=== PATIENT | female | born 1955 | race Caucasian/White ===

== ENCOUNTER 2022-11-12 15:20 | Outpatient (REF) | payer BC, SELFPAY ==
[2022-11-12 16:51] LABS: Estimated Average Glucose 214 mg/dL; Glucose Fasting 318 mg/dL (60-99); Hemoglobin A1c % 9.1 %
== END 2022-11-12 15:21 | disposition home or self-care (01) ==
LOC: HO.LAB 15:20
PROVIDERS: PCP Family Medicine; Visit Provider Family Medicine
DX: E11.9 Type 2 diabetes mellitus without complications (principal)
CPT/HCPCS: 36415; 82947; 83036

== ENCOUNTER 2024-03-03 14:16 | Outpatient (REF) | payer BC, SELFPAY ==
[2024-03-03 14:43] LABS: MANUAL DIFF FLAG NO
[2024-03-03 15:36] LABS: Basophils Absolute Auto 0.1 X10*3/uL (0.0-0.2); Basophils Percent Auto 0.7 % (0-2); Eosinophils Absolute Auto 0.3 X10*3/uL (0.0-0.4); Eosinophils Percent Auto 4.2 % (0-4); Hematocrit 42.9 % (37.0-47.0); Hemoglobin 15.3 g/dl (12.0-16.0); Imm Gran Abs Auto 0.06 X10*3/uL (0.00-0.03); Imm Gran Pct Auto 0.8 % (0.0-0.4); Lymphocytes Absolute Auto 2.1 X10*3/uL (1.2-4.9); Lymphocytes Percent Auto 27.1 % (20-40); Mean Corpuscular HGB Conc 35.7 g/dl (31.0-35.0); Mean Corpuscular Hemoglobin 31.5 pg (27.0-33.0); Mean Corpuscular Volume 88.3 fL (80.0-98.0); Mean Platelet Volume 10.3 fL (9.4-12.3); Monocytes Absolute Auto 0.7 X10*3/uL (0.1-1.2); Monocytes Percent Auto 9.2 % (2-11); Neutrophils Absolute Auto 4.5 x10*3/uL (2.0-8.3); Platelet Count 185 X10*3/uL (160-400); Red Blood Count 4.86 X10*6/uL (4.20-5.50); White Blood Count 7.7 X10*3/uL (4.8-10.8)
[2024-03-03 15:47] LABS: Estimated Average Glucose 232 mg/dL; Hemoglobin A1c % 9.7 % (<6.0)
[2024-03-03 16:46] LABS: Alanine Aminotransferase 27 U/L (0-31); Anion Gap 14 (12-20); Aspartate Amino Transferase 15 U/L (5-31); Carbon Dioxide 25 mmol/L (22-29); Chloride 102 mmol/L (96-108); Cholesterol 177 mg/dL (<200); Estimated Glomerular Filt Rate > 60; Glucose Fasting 282 mg/dL (60-99); HDL Cholesterol 60 mg/dL (>40); LDL Cholesterol Calculated 98 mg/dL (<100); Potassium 4.6 mmol/L (3.3-5.1); Sodium 136 mmol/L (135-145); Triglycerides 97 mg/dL (<150)
[2024-03-03 16:47] LABS: Microalbum/Creatinine Ratio Ur 17.7 ug/mg cr (<30)
== END 2024-03-03 14:17 | disposition home or self-care (01) ==
LOC: HO.LAB 14:16
PROVIDERS: PCP Family Medicine; Visit Provider Family Medicine
DX: I10 Essential (primary) hypertension (principal); E11.9 Type 2 diabetes mellitus without complications; E78.00 Pure hypercholesterolemia, unspecified; Z79.899 Other long term (current) drug therapy; R27.0 Ataxia, unspecified
CPT/HCPCS: 36415; 80051; 80061; 82043; 82550; 82565; 82570; 82947; 83036; 84450; 84460; 85025

== ENCOUNTER 2024-11-16 15:05 | Outpatient (REF) | payer BC, SELFPAY ==
--- OUTSIDE RECORDS SUMMARY | 2024-11-16 16:42 | XMS_ITS | Clinical Summary ---
Author Organization [facility] Address [address] [place] [address] Care Team Providers Care Well Tester Name Role Phone Derrek Hendricks MD Primary Care Provider [phone] Allergies Active Allergy Reactions Criticality Noted Date Comments Codeine 12/02/2020 Garlic 12/02/2020 Meperidine Hcl 12/02/2020 Oxycodone Hcl 12/02/2020 Shrimp 12/02/2020 Medications spironolactone (ALDACTONE) 25 mg tablet TAKE 1 TABLET BY MOUTH EVERY DAY 90 tablet 3 06/16/2024 Active verapamil ER (VERELAN) 240 mg 24 hr capsule TAKE 1 CAPSULE BY MOUTH EVERY DAY 90 capsule 3 06/16/2024 Active atenoloL (TENORMIN) 50 mg tablet TAKE 1 TABLET BY MOUTH TWICE A DAY 180 tablet 3 06/16/2024 Active aspirin 81 mg EC tablet Take 81 mg by mouth daily. Active atorvastatin (LIPITOR) 10 mg tablet TAKE 1 TABLET BY MOUTH EVERY DAY 02/28/2024 Active benzonatate (TESSALON) 100 mg capsule Take 1 Capsule by mouth 2 times daily as needed for Cough. 01/06/2024 Active brimonidine (ALPHAGAN P) 0.15 % ophthalmic solution Place 1 Drop into both eyes 2 times daily. Active sertraline (ZOLOFT) 25 mg tablet Take 1 Tablet by mouth daily. Active sertraline (ZOLOFT) 50 mg tablet Take 1 Tablet by mouth daily. Active Active Problems Problem Noted Date Diagnosed Date Chronic cough 01/07/2024 Dyslipidemia 01/07/2024 COVID-19 virus infection 12/02/2020 Essential hypertension 12/02/2020 Hypertrophic cardiomyopathy (CMS/HCC V24, CMS/HC C V28) 12/02/2020 Nonrheumatic mitral valve regurgitation 05/21/20 21 Social History Tobacco Use Types Packs/Day Years Used Date Smoking Tobacco: Never Smokeless Tobacco: Never Alcohol Use Standard Drinks/Week Comments Never 0 (1 standard drink = 0.6 oz pur e alcohol) Comments Unknown Sex and Gender Information Value Date Recorded Sex Assigned at Not on file Legal Sex Female 1:01 AM EST Gender Identity Not on file Sexual Orientation Not on file Obstetrics History Last Filed Vital Signs Vital Sign Reading Time Taken Comments Blood Pressure 114/68 01/06/2024 3:05 PM EDT Sitting R Arm Pulse 68 01/06/2024 3:05 PM EDT Temperature - - Respiratory Rate - - Oxygen Saturation - - Inhaled Oxygen Concentration - - Weight 72.8 kg (160 lb 6.4 oz) 01/06/2024 3:05 PM EDT Height 152.4 cm (5') 01/06/2024 3:05 PM EDT Body Mass Index 31.33 01/06/2024 3:05 PM EDT Plan of Treatment Upcoming Encounters Date Type Department Care Team (Late st Contact Info) Description 01/05/2025 1:30 PM EDT Ancillary Procedure [facility] [address] [place] [address] Health Maintenance Due Date Last Done Comments Breast Cancer Screening 1955 COVID-19 Vaccine (#1) 1961 DTaP,Tdap,and Td Vaccines (1 - Tdap) 1975 Pneumococcal Vaccine: 50+ Ye ars (1 of 2 - PCV) 1975 Zoster Vaccines (1 of 2) 1975 Cholesterol Screening (Lipid Panel) 06/23/2022 Colorectal Cancer Screening: Colonoscopy 06/23/2022 Depression Screening 06/23/2022 Falls Risk Assessment 06/23/2022 Hepatitis C Screening 06/23/2022 Osteoporosis Screening (Bone Density Screening) 06/23/2022 Social Influencers of Health Screening 06/23/2022 Hypertension/CHF/CAD Annual BMP Blood Test 06/24/2022 Influenza Vaccine (Season Ended) 2025 RSV Immunization Adult Patie nts (1 - 1-dose 75+ series) 2031 HIB Vaccines Aged Out No longer eligi ble based on patient's age to complete this topic HPV Vaccines Aged Out No longer eligi ble based on patient's age to complete this topic Hepatitis A Vaccines Aged Out No long er eligible based on patient's age to complete this topic Hepatitis B Vaccines Aged Out No long er eligible based on patient's age to complete this topic IPV Vaccines Aged Out No longer eligi ble based on patient's age to complete this topic MMR Vaccines Aged Out No longer eligi ble based on patient's age to complete this topic Meningococcal ACWY Vaccine Aged Out N o longer eligible based on patient's age to complete this topic Meningococcal B Vaccine Aged Out No l onger eligible based on patient's age to complete this topic RSV Immunization Patients Un tyson 20 months Aged Out No longer eligible b ased on patient's age to complete this topic Varicella Vaccines Aged Out No longer eligible based on patient's age to complete this topic Insurance [facility] Care Teams Well Tester Relationship Specialty Start Date End Date Derrek Hendricks MD [address] [place] [address] [place] [address] PCP - General Internal Medicine 06/11/20
[2024-11-16 17:17] LABS: Estimated Average Glucose 235 mg/dL; Hemoglobin A1c % 9.8 % (<6.0); Total Hemoglobin (HGBA1C) 3605.8607 umol/L
[2024-11-16 17:40] LABS: Alanine Aminotransferase 39 U/L (0-31); Anion Gap 14 (12-20); Aspartate Amino Transferase 33 U/L (5-31); Blood Urea Nitrogen 16 mg/dL (9-16); Carbon Dioxide 24 mmol/L (22-29); Chloride 103 mmol/L (96-108); Cholesterol 157 mg/dL (<200); Estimated Glomerular Filt Rate > 60; Glucose Fasting 262 mg/dL (60-99); HDL Cholesterol 55 mg/dL (>40); LDL Cholesterol Calculated 83 mg/dL (<100); Potassium 4.3 mmol/L (3.3-5.1); Sodium 137 mmol/L (135-145); Triglycerides 96 mg/dL (<150)
== END 2024-11-16 15:06 | disposition home or self-care (01) ==
LOC: HO.LAB 15:05
PROVIDERS: PCP Family Medicine; Visit Provider Family Medicine
DX: I10 Essential (primary) hypertension (principal); E78.00 Pure hypercholesterolemia, unspecified; E11.9 Type 2 diabetes mellitus without complications
CPT/HCPCS: 36415; 80051; 80061; 82550; 82565; 82947; 83036; 84450; 84460; 84520

== ENCOUNTER 2025-06-24 14:59 | Outpatient (AMB) | payer BC, SELFPAY ==
--- OUTSIDE RECORDS SUMMARY | 2025-06-22 23:59 | XMS_ITS | Continuity of Care Document ---
Author Organization [facility] Address [address] [place] [address]- Care Team Providers Care Transfer Car Operator Name Role Phone Eladio ELDER, Derrek Davis Primary Care Physician Delaney henriquez Encounter [facility] [place] [facility] [place] [id number] Date(s): 06/15/25 - 06/22/25 [facility] [address] [place], [place] [address] Attending Physician: Anu Briceno MD Admitting Physician: Anu Briceno MD Referring Physician: Derrek Hendricks MD Encounter Type: Office Visit Allergies, Adverse Reactions, Alerts Substance Criticality Severity Reaction Reaction Severity Status codeine C/O - vomiting Activ e garlic Active Percocet 7.5/325 Act melanie Demerol HCl Active Shrimp Active Functional Status Functional Status Assessment Assessment Assessment Component Result Effecti ve Date Disability status [CUBS] I'm Safe - I rarely have acute or chronic symptoms affecting housing, employment, social interactions, etc. 06/15/25 Because of a physica l, mental, or emotional condition, do you have difficulty doing errands alone such as visiting a physician's office or shopping Unknown 06/15/25 Difficulty communica ting in usual language Unknown 06/15/25 Because of a physica l, mental, or emotional condition, do you have serious difficulty concentrating, remembering, or making decisions Unknown 06/15/25 Difficulty Reading O r Writing Unknown 06/15/25 Do you have serious difficulty walking or climbing stairs Unknown 06/15/25 Are you blind, or do you have serious difficulty seeing, even when wearing glasses Unknown 06/15/25 Are you deaf, or do you have serious difficulty hearing Unknown 06/15/25 Do you have difficul ty dressing or bathing Unknown 06/15/25 Do you need any letitia tional assistance or accommodations during your visit Unknown 06/15/25 Immunizations Given and Recorded Vaccine Date Status Refusal Reason influenza virus vaccine, inactivated 05/07/25 Give n Medications Alcohol Pads See Instructions, # 600 each, Refills 2, Tot. Refills 2, Maintenance, use as directed for Type 1 Diabetes Mellitus, 05/11/25 8:47:00 AM EDT, Supply, 152.5, cm, 05/11/25 8:21:00 EDT, Height, 68.4, kg,05/07/25 0:26:00 EDT, Dry Weight Start Date: 05/11/25 Stop Date: 02/05/26 Status: Ordered Medication Dispense Status: Completed Quantity: 600.0 Unit: each Total Allowed Fills: 3 Fills Dispensed: 0 apixaban 5 mg oral tablet = 5 mg, By Mouth, 2 times a day, Take 2 tablets (10mg) twice a day through 05/16 then 1 tablet (5mg)twice a day starting 05/17, # 64 tablet, 0 Refills, Maintenance, 05/11/25 8:34:00 AM EDT, Tablet, [facility], Partial fill upon patient request if the prescription is for a schedule II opioid drug., 152.5, cm, 05/11/25 8:21:00 EDT, Height, 68.4, kg, 05/07/25 0:26:00 EDT, Dry Weight Start Date: 05/11/25 Status: Ordered Medication Dispense Status: Completed Quantity: 64.0 Unit: tablet Total Allowed Fills: 1 Fills Dispensed: 0 aspirin 81 mg oral tablet 1 tablet = 81 mg, By Mouth, Daily, # 90 tablet, 0 Refills, Maintenance, 10/29/18 3:16:46 PM EDT, Tablet Start Date: 10/29/18 Status: Ordered Medication Dispense Status: Completed Quantity: 90.0 Unit: tablet Total Allowed Fills: 1 Fills Dispensed: 0 atorvastatin 10 mg oral tablet 1 tablet = 10 mg, By Mouth, Daily, # 90 tablet, 0 Refills, Maintenance, 05/06/25 6:56:00 AM EDT, Partial fill upon patient request if the prescription is for a schedule II opioid drug. Start Date: 05/06/25 Status: Ordered Medication Dispense Status: Completed Quantity: 90.0 Unit: tablet Total Allowed Fills: 1 Fills Dispensed: 0 Contour Next EZ Glucometer See Instructions, # 1 each, Maintenance, use as directed for Type 2 Diabetes Mellitus, 05/11/25 8:46:00 AM EDT, Supply, 152.5, cm, 05/11/25 8:21:00 EDT, Height, 68.4, kg, 05/07/25 0:26:00 EDT, Dry Weight Start Date: 05/11/25 Status: Ordered Medication Dispense Status: Completed Quantity: 1.0 Unit: each Total Allowed Fills: 1 Fills Dispensed: 0 Freestyle Lancets See Instructions, # 600 each, Refills 2, Tot. Refills 2, Maintenance, use as directed for Type 2 Diabetes Mellitus, 05/11/25 8:46:00 AM EDT, Supply, 152.5, cm, 05/11/25 8:21:00 EDT, Height, 68.4, kg,05/07/25 0:26:00 EDT, Dry Weight Start Date: 05/11/25 Stop Date: 02/05/26 Status: Ordered Medication Dispense Status: Completed Quantity: 600.0 Unit: each Total Allowed Fills: 3 Fills Dispensed: 0 Freestyle Test Strips See Instructions, # 600 each, Refills 2, Tot. Refills 2, Maintenance, use as directed for Type 1 Diabetes Mellitus, 05/11/25 8:47:00 AM EDT, Supply, 152.5, cm, 05/11/25 8:21:00 EDT, Height, 68.4, kg,05/07/25 0:26:00 EDT, Dry Weight Start Date: 05/11/25 Stop Date: 02/05/26 Status: Ordered Medication Dispense Status: Completed Quantity: 600.0 Unit: each Total Allowed Fills: 3 Fills Dispensed: 0 insulin glargine 100 u/ml subcutaneous solution = 12 units, Subcutaneous Injection, Daily at bedtime, # 15 mL, 0 Refills, Maintenance, 05/11/25 8:45:00 AM EDT, Injection, [facility], Partial fill upon patient request if the prescription is for a schedule II opioid drug., 152.5, cm, 10/28/25 8:21:00 EDT, Height, 68.4, kg, 05/07/25 0: 26:00 EDT, Dry Weight Start Date: 05/11/25 Status: Ordered Medication Dispense Status: Completed Quantity: 15.0 Unit: mL Total Allowed Fills: 1 Fills Dispensed: 0 insulin lispro 100 u/ml subcutaneous injection 5-10 units, Subcutaneous Injection, 3 times a day before meals, << Sliding Scale Comments >> 100 - 149 5 units Call if less than 70 150 - 199 6 units 200 - 249 7 units 250 - 299 8 units 300 - 349 9 units 350 - 399 10 units Call if greater than 400 << Sliding Scale Comments >>, # 15 mL, 0 Refills, Maintenance, 05/11/25 8:51:00 AM EDT, Injection, [facility], Partial fill upon patient request if the prescription is for a schedule II opioid drug., 152.5, cm, 8:21:00 EDT, Height, 68.4, kg, 05/07/25 0:26:00 EDT, Dry Weight Start Date: 05/11/25 Status: Ordered Medication Dispense Status: Completed Quantity: 15.0 Unit: mL Total Allowed Fills: 1 Fills Dispensed: 0 Insulin Syringe, BD Ultra-Fine 0.3 cc 31 G x 8 mm (5/16in) See Instructions, # 300 each, Refills 2, Tot. Refills 2, Maintenance, use as directed for Type 2 Diabetes Mellitus, 05/11/25 8:47:00 AM EDT, Supply, 152.5, cm, 05/11/25 8:21:00 EDT, Height, 68.4, kg,05/07/25 0:26:00 EDT, Dry Weight Start Date: 05/11/25 Stop Date: 02/05/26 Status: Ordered Medication Dispense Status: Completed Quantity: 300.0 Unit: each Total Allowed Fills: 3 Fills Dispensed: 0 metoprolol 25 mg oral tablet 25 mg, By Mouth, 2 times a day, # 60 tablet, Refills 0, Tot. Refills 0, Maintenance, 05/11/25 8:33:00 AM EDT, Route to Pharmacy Electronically, [facility], Partial fill upon patient request if the prescription is for a schedule II opioid drug., 152.5, cm, 05/11/25 8:21:00 EDT, Height,68.4, kg, 05/07/25 0:26:00 EDT, Dry Weight Start Date: 05/11/25 Status: Ordered Medication Dispense Status: Completed Quantity: 60.0 Unit: tablet Total Allowed Fills: 1 Fills Dispensed: 0 sertraline 25 mg oral tablet 1 tablet = 25 mg, By Mouth, Daily, take with 50mg to = 75 mg, # 90 tablet, 0 Refills, Maintenance, 05/06/25 6:56:00 AM EDT, Tablet, Partial fill upon patient request if the prescription is for a schedule II opioid drug. Start Date: 05/06/25 Status: Ordered Medication Dispense Status: Completed Quantity: 90.0 Unit: tablet Total Allowed Fills: 1 Fills Dispensed: 0 sertraline 50 mg oral tablet 1 tablet = 50 mg, By Mouth, Daily, take with 25 mg to = 75 mg, # 90 tablet, 0 Refills, Maintenance,05/06/25 6:56:00 AM EDT, Tablet, Partial fill upon patient request if the prescription is for a schedule II opioid drug. Start Date: 05/06/25 Status: Ordered Medication Dispense Status: Completed Quantity: 90.0 Unit: tablet Total Allowed Fills: 1 Fills Dispensed: 0 verapamil 40 mg oral tablet 1 tablet = 40 mg, By Mouth, Every 8 hours, 0 Refills, Maintenance, 05/06/25 6:54:00 AM EDT, Partialfill upon patient request if the prescription is for a schedule II opioid drug. Start Date: 05/06/25 Status: Ordered Medication Dispense Status: Completed Total Allowed Fills: 1 Fills Dispensed: 0 Problem List Condition Confirmation Course Effective Dates Status Health St atus Informant Abnormal findings on diagnostic imaging of breast Confirmed Active CHF exacerbation Confirmed Active Breast lump present Confirmed Active CA - breast, malignant, Right, stage IA (pT1a pN0, pMX) infiltrating ductal carcinoma, grade 1, ER/ OR positive, HER-2/nithin negative, diagnosed July 2011. Confirmed Active HLD (hyperlipidemia) Confirmed Active HTN (hypertension) Confirmed Active Obese class I Confirmed Active Breast pain Confirmed Active Superior mesenteric artery thrombosis Confirmed Active Type 2 diabetes mellitus Confirmed Active Vital Signs Most recent to oldest [Reference Range]: 1 Height 153 cm (06/15/25 2:56 PM) Weight 71.5 kg (06/15/25 2:56 PM) Oxygen Saturation [94-100 %] 98 % (06/15/25 2:56 PM) Pulse Rate [55-90 bpm] 101 bpm *H* (06/15/25 2:56 PM) Body Mass Index [18.5-24.99 kg/m2] 30.54 kg/m2 *H* (06/15/25 2:56 PM) Blood Pressure [90-138/55-84 mm Hg] 108/ 50mm Hg (06/15/25 2:56 PM) Mode of Delivery (Oxygen) Room air (06/15/25 2:56 PM) Blood pressure sites Arm, left (06/15/25 2:56 PM) Weight Obtained Via Patient/family state d (06/15/25 2:56 PM) Social History Social History Type Response Smoking Status Never (less than 100 in lifetime) entered on: 02/01/20 Sex Female Sex Representation Female (finding) Note * Nan Wisdom: PERFORM Event Display: Patient Education/Instruction Authored Date: [id number] Ambulatory Adult Visit Summary [address] [place] [address] Name: CHEKO MADRID : 1955?? Visit: 06/15/2025 14:40?? Ambulatory Visit Instructions ?? Your Care Team Primary Care Provider Eladio ELDER, Derrek Davis?? This Visit Provider Anu Briceno MD Vitals Signs Pulse Rate:??101 bpm??High Height: 153 cm Systolic Blood Pressure: 108 mm Hg Weight: 71.5 kg Diastolic Blood Pressure:??50 mm Hg??Low Body Mass Index:??30.54 kg/m2??High Oxygen Saturation: 98 % Body surface area: 1.74 Medications The list below reflects the information in our records and provided by you today along with any changes made during this visit. Please continue your medications until treatment is completed or stopped by your provider. If this is different from the information you have or there are other questions,please contact the prescribing provider. What How Much When Instructions Unchanged apixaban (apixaban 5 mg oral tablet) 5 Milligram Oral Twice a day Special Instructions: Take 2 tablets (10mg) twice a day through 05/16 then 1 tablet (5mg) twice a day starting 05/17 Ordering Physician: Philly Renner NP ?? Unchanged Aspirin (aspirin 81 mg oral tablet) 1 tab(s) Oral Daily Unchanged Atorvastatin (atorvastatin 10 mg oral tablet) 1 tab(s) Oral Daily Unchanged Durable Medical Equipment (Alcohol Pads) See instructions Duration: 90 Days Special Instructions: use as directed for Type 1 Diabetes Mellitus Ordering Physician: Philly Renner NP ?? Unchanged Durable Medical Equipment (Contour Next EZ Glucometer) See instructions Special Instructions: use as directed for Type 2 Diabetes Mellitus Ordering Physician: Philly Renner NP ?? Unchanged Durable Medical Equipment (Freestyle Lancets) See instructions Duration: 90 Days Special Instructions: use as directed for Type 2 Diabetes Mellitus Ordering Physician: Philly Renner NP ?? Unchanged Durable Medical Equipment (Freestyle Test Strips) See instructions Duration: 90 Days Special Instructions: use as directed for Type 1 Diabetes Mellitus Ordering Physician: Philly Renner NP ?? Unchanged Durable Medical Equipment (Insulin Syringe, BD Ultra-Fine 0.3 cc 31 G x 8 mm (5/ 16in)) See instructions Duration: 90 Days Special Instructions: use as directed for Type 2 Diabetes Mellitus Ordering Physician: Philly Renner NP ?? Unchanged Insulin Glargine (insulin glargine 100 u/ ml subcutaneous solution) 12 unit(s) Subcutaneous Injection Daily at Bedtime Ordering Physician: Philly Renner NP Unchanged Insulin Lispro (insulin lispro 100 u/ ml subcutaneous injection) 5-10 units Subcutaneous Injection 3 times a day before meals Special Instructions: << Sliding Scale Comments >> 100 - 149 ?? 5 units Call if less than 70 150 - 199 ?? 6 units 200 - 249 ?? 7 units 250 - 299 ?? 8 units 300 - 349 ?? 9 units 350 - 399 ?? 10 units Call if greater than 400 << Sliding Scale Comments >> Ordering Physician: Philly Renner NP ?? Unchanged Metoprolol (metoprolol 25 mg oral tablet) 25 Milligram Oral Twice a day Ordering Physician: Philly Renner NP Unchanged Sertraline (sertraline 25 mg oral tablet) 1 tab(s) Oral Daily Special Instructions: take with 50mg to = 75 mg ?? Unchanged Sertraline (sertraline 50 mg oral tablet) 1 tab(s) Oral Daily Special Instructions: take with 25 mg to = 75 mg ?? Unchanged Verapamil (verapamil 40 mg oral tablet) 1 tab(s) Oral Every 8 hours Medications and Immunizations Administered Medications Given During Visit No medications given during this visit.?? Allergies (NKA means No Known Allergies) Demerol HCl Percocet 7.5/325 Shrimp codeine??C/O - vomiting garlic Common Emergency Awareness Tips IS IT A STROKE? Act FAST and Check for these signs: FACE Does the face look uneven? ARM Does one arm drift down? SPEECH Does their speech sound strange? TIME Call at any sign of stroke ?? Heart Attack Signs Chest discomfort: Most heart attacks involve discomfort in the center of the chest and lasts more than a few minutes, or goes away and comes back. It can feel like uncomfortable pressure, squeezing, fullness or pain. Discomfort in upper body: Symptoms can include pain or discomfort in one or both arms, back, neck, jaw or stomach. Shortness of breath: With or without discomfort. Other signs: Breaking out in a cold sweat, nausea, or lightheaded. Remember, MINUTES DO MATTER. If you experience any of these heart attack warning signs, call to get immediate medical attention! ?? Smoking can increase your chances of developing chronic health problems and can cause harmful effects to other family members in your house. If you smoke, you are strongly encouraged to quit. Please call [employer] [facility] at [phone] or 2-648-624Svpply (3336) or log in to [email or web address] for referrals to smoking cessation programs. ?? The National Suicide Prevention Hotline is available 04/02 if you or someone you know needs to find a reason to keep living. By calling 5-861-149-[employer] (4534) you'll be connected to a skilled, trained counselor at a crisis center in your area. [facility] You can view and manage your care through the patient portal or by using a health care monika of your choosing. sharing.it is a website that allows you to securely view your medical information including your hospital discharge summary, office visit summaries, medications and follow-up visits. You can also request appointments, renew medications, and request access to your medical information using a health care monika of your choosing, or just ask a question. You can enroll at [email or web address] or register during your next office visit. [facility], in keeping with [facility] guidance, no longer requires face masks for staff, patientsor visitors in most situations. Similiar to time spent indoors at other locations, there is the chance that you were exposed to repiratory viruses during your time with us (such as flu or COVID-19). If you develop symptoms concerning for a viral respiratory infection, please seek testing (and treatment if indicated) from your medical provider or home test kit. ?? Disclaimer: The information provided is of a general nature and is intended to be used in conjunction with the recommendations and advice of your health care practitioner. Every effort has been made to ensure that the information provided is accurate and complete at the time it is provided to you however, as your needs change, or, as new information becomes available, different or additional instructions may be required. ?? If you have questions, please consult with your primary care provider or pharmacist, as appropriate. This information is not intended to serve as substitution for assessment and evaluation by a qualified health care provider. If you do not have a primary care provider, you may find a [facility] provider by calling [facility] at [phone]. Patient Care team information Care Team Personnel Name: Isaiah Morfin RN Position: S RN Member Role: Primary Care Nurse Name: Derrek Hendricks MD Position: Reference Physician Member Role: PCP Name: Rosa Diez RN Position: S RN Member Role: Primary Care Nurse Name: Gabby Grant RN Position: S RN Member Role: Primary Care Nurse Care Team Related Persons Name: MAINE TAPIA Name: ANU MADRID Name: CHRISTA DAUGHTER JESICA FELIX Insurance Providers Guarantor name: CHEKO MADRID Health Plan Information #: 1 Payer: [employer] PPO Payer Identifier: NA Member Number: [id number] Group Number: [id number] Subscriber Identifier: [id number] Relationship to Subscriber: self Coverage Type: NA Coverage Verification Date: NA Telecom: NA Address: NA
--- NOTE | 2025-06-24 15:04 | MHC.PC.OV ---
Vital Signs 06/24/25 15:12 Height 5 ft Weight 141 lb BMI 27.5 BP 122/80 Blood Pressure Location Lt brachial Position Sitting Pulse 68 Pulse Source Pulse Oximeter Temp 97 F Temp Source Temporal Artery Scan Pulse Oximetry (%) 97 Oxygen Delivery Method Room Air Intake Visit Reasons: New Patient Appt Full Stack Developer Required: No Accompanied by: Self / Same As Patient Allergies codeine (CODEINE) Allergy (Severe, Verified 06/24/25 15:05) N/V, vomiting meperidine (From DEMEROL) Allergy (Severe, Verified 06/24/25 15:05) N/V oxycodone (From PERCOCET) Allergy (Severe, Verified 06/24/25 15:05) N/V acetaminophen (Percocet) Allergy (Unknown, Verified 06/24/25 15:05) vomiting garlic Allergy (Unknown, Uncoded 04/21/25 18:08) Unknown shrimp Allergy (Unknown, Uncoded 04/21/25 18:08) Unknown Medication List - Last Reconciled 06/24/25 by BECCA Mendiola apixaban (Eliquis) 5 mg PO BID aspirin 81 mg PO DAILY atenolol 25 mg PO BID atorvastatin (Lipitor) 10 mg PO DAILY insulin glargine (Lantus Solostar U-100 Insulin) 12 units (0.12 mL) subcut QPM insulin lispro (Admelog SoloStar U-100 Insulin lispro) 1 sliding scale dose subcut USEASDIRECTD sertraline 50 mg PO QAM verapamil 40 mg PO BID Tobacco use date assessed: 06/24/25 Fall risk assessment: 1 Fall in past year Last assessed Fall Risk: 06/24/25 Dental Screening Dental Screen Date: 06/24/25 Did you have a dental visit in the last 12 months?: No Did you have a dental problem in the last 6 months where you did not have access to dental care?: No HPI HPI Comments History of Present Illness Details History of Present Illness The patient is a 70 year old female with DM, HTN, Hypertrophic cardiomyopathy, Mitral regurgitation, GERD and history of breast cancer presenting to [facility] primary care and for management of chronic conditions. She has not had a primary care physician since her previous doctor of 37 years retired in December. The patient recently experienced multiple hospitalizations after getting sick while visiting [place]. She initially presented to a hospital in [place], [place], with severe leg pain, discomfort, and inability to sleep. Her potassium, blood pressure, and heart rate were abnormal, prompting concern. She was transferred from [facility] to [facility], where she stayed for six days and received heparin injections. She was started on Insulin. After being discharged from [place], she returned home but woke up in severe pain seven hours later and was taken by ambulance to [facility]. A CT scan at [place] revealed blood clots, including a small one in her leg and a large one in the celiac artery, leading to a transfer to [facility]. The large clot was removed at [facility], and she was started on Eliquis. A recent follow-up CT scan was clear, and she has been cleared by that physician, though instructed to continue the blood thinner until cleared by cardiology. She was also found to have a PFO The patient has a history of type 2 diabetes. She was previously told she was prediabetic and prescribed metformin, which she felt was ineffective. She has been on insulin since May 02 of the current year, taking 12 units of long-acting insulin and 5 to 8 units of short-acting insulin on a sliding scale. Her blood sugars are not too bad, and she has had one episode of her sugar being low at 92. Her cardiac history includes hypertension, cardiomyopathy, and mild mitral valve regurgitation. She sees a PA, Jori Lara, at [facility], whom she has been seeing for about 10 years. During her workup for the blood clots, a patent foramen ovale (PFO) was discovered, and she has a follow-up appointment with cardiology on August 09. The patient has a history of breast cancer in 2011 and has been released from oncology follow-up, but continues to have annual mammograms, with the last one in December. She declines colon cancer screening and has not had a Pap smear in a long time but is agreeable to having one. She had an eye exam in March. Medical History: - Thrombosis with recent hospitalization and clot removal - Patent Foramen Ovale (PFO) - Diabetes Mellitus, type 2, insulin-dependent since April - Hypertension - Cardiomyopathy - Mitral valve regurgitation, mild - Breast Cancer, diagnosed in 2011, no longer followed by oncology Surgical History: - Removal of a blood clot from the intestine Medications: - Eliquis (apixaban) - Long-acting insulin (glargine/Lantus), 12 units - Short-acting insulin, 5-8 units on a sliding scale - Aspirin - Atorvastatin 10 mg - Metoprolol 25 mg twice a day - Verapamil, 80 mg total per day, taken as 40 mg twice a day - Sertraline 50 mg Health Maintenance A referral will be placed for a Pap smear with a [facility] at [facility], per patient preference. The patient will continue with annual mammograms and her scheduled eye exam. A follow-up appointment is scheduled in eight weeks to review cardiology recommendations and perform follow-up lab work. Social History - Employment: Works at [employer] from Saturday through , typically finishing around 3:30 in the morning. Results - Imaging: - CT Scan: Revealed two blood clots, a small one in the leg and a large one at the top of the intestine. - Recent follow-up CT scan was clear. - A finding of a patent foramen ovale (PFO) was made during evaluation for the blood clots. Patient was informed and verbally consented to the use of an ambient scribe for clinic note documentation during this visit. [facility] Medical History (Updated 06/24/25 @ 17:52 by BECCA Mendiola) Diabetes Health care maintenance History of arterial thrombosis History of breast cancer History of DVT (deep vein thrombosis) Hypertension Hypertrophic cardiomyopathy Mitral regurgitation PFO (patent foramen ovale) Family History (Updated 06/24/25 @ 15:20 by Leonora Meyer MA) Mother No problems noted. Father No problems noted. Social History Housing: House Patient Tobacco Use Status: Never used Tobacco e-Cigarette/Vaping Use: Never Used service: No Current occupational status: employed and retired Cognitive needs: No Hearing needs: No Vision needs: Yes (rx glasses) Questionnaire PHQ-9 Over the last 2 weeks, how often have you been bothered by any of the following problems? 1. Little interest or pleasure in doing things: not at all 2. Feeling down, depressed, or hopeless: not at all 3. Trouble falling or staying asleep, or sleeping too much: not at all 4. Feeling tired or having little energy: not at all 5. Poor appetite or overeating: not at all 6. Feeling bad about yourself - or that you are a failure or have let yourself or your family down: not at all 7. Trouble concentrating on things, such as reading the newspaper or watching television: not at all 8. Moving or speaking so slowly that other people could have noticed. Or the opposite - being so fidgety or restless that you have been moving around a lot more than usual: not at all 9. Thoughts that you would be better off or of hurting yourself in some way: not at all Total score: 0 Depression Screening Interpretation: Negative Depression Screening Done: Yes Source: Developed by Drs. Serjio Bustamante, Berenice Griggs, Alec Parmar and colleagues, with an educational jannette from [employer]. Thrive Questionnaire Date Thrive assessed: 06/24/25 I am a: Patient Within the past 12 months, did the food you bought not last and you didn't have the money to get more?: Never true Within the past 12 months, did you worry whether your food would run out before you got money to buy more?: Never true Do you have trouble paying for medicines?: No Do you have trouble getting transportation to medical appointments?: No Do you have trouble paying your heating and electricity bill?: No Do you have trouble taking care of your child, family member or friend?: No Do you have trouble with day-to-day activities such as bathing, preparing meals, shopping, managing finances, etc.?: No Are you currently unemployed and looking for a job?: No Are you interested in more education?: No THRIVE Score: 0 AUDIT C Alcohol Use Questionnaire (AUDIT-C) 1. How often do you have a drink containing alcohol?: Monthly or less 2. How many drinks containing alcohol do you have on a typical day when you are drinking?: 1 or 2 3. How often do you have six or more drinks on one occasion?: Less than monthly Total Score: 2 JOHN-7 AMB Questionnaire JOHN-7 Date JOHN - 7 assessed: 06/24/25 Feeling nervous, anxious, or on edge: 0 = Not at all Not being able to stop or control worryin = Not at all Worrying too much about different things: 0 = Not at all Trouble relaxin = Not at all Being so restless that it is hard to sit still: 0 = Not at all Becoming easily annoyed or irritable: 0 = Not at all Feeling afraid as if something awful might happen: 0 = Not at all Total JOHN-7 score (0-4 normal; 5-9 mild; 10-14 moderate; 15-21 severe): 0 Source: Developed by Drs. Serjio Bustamante, Berenice Griggs, Alec Parmar and colleagues, with an educational jannette from [employer]. Review of Systems Narrative Review of Systems - Respiratory: Denies shortness of breath. - Cardiovascular: Denies swelling in the legs. - Musculoskeletal: Reports history of severe leg pain and soreness leading to her initial hospitalization. - Neurological: Reports a history of being unable to get comfortable or sleep due to pain. - All other systems were reviewed and are negative. Physical exam (Primary Care) Vital Signs: Last Vital Signs Temp 97 F 06/24/25 15:12 Pulse 68 06/24/25 15:12 BP 122/80 06/24/25 15:12 Pulse Ox 97 06/24/25 15:12 Oxygen Delivery Method Room Air 06/24/25 15:12 BMI result Body Mass Index 27.5 GENERAL Well developed, Well nourished, in no apparent distress HEENT Head-Normocephalic Neck- Supple, No lymphadenopathy, thyroid WNL RESPIRATORY Normal I:E, Clear to auscultation CARDIOVASCULAR Regular, rate and rhythm, No murmurs or rubs NEUROLOGICAL Gait normal PSYCHIATRIC Oriented to person, place and time Mood and affect WNL Appearance WNL Speech WNL Thought processes WNL Tobacco/Smoking Status: Tobacco use Status Tobacco use date assessed 06/24/25 06/24/25 15:06 Patient Tobacco Use Status Never used Tobacco 06/24/25 15:06 e-Cigarette/Vaping Use Never Used 06/24/25 15:06 PHQ-9: PHQ-9 Score PHQ-9: Total score 0 06/24/25 15:21 Depression Screening Interpretation: Negative Thrive Assessment: Date of Thrive Assessment Date Thrive assessed 06/24/25 06/24/25 15:21 Coding Level of Care Code New Pt Tele New Pt Level 4 (86755) Patient Type New Diagnoses Diabetes E11.9 Hypertension I10 Hypertrophic cardiomyopathy I42.2 Mitral regurgitation I34.0 History of breast cancer Z85.3 History of DVT (deep vein thrombosis) Z86.718 History of arterial thrombosis Z86.718 PFO (patent foramen ovale) Q21.12 Health care maintenance Z00.00 Time Spent (min) 40 Comment Time was spent on chart review, medication reconciliation, H&P, Patient education, orders. Assessment & Plan Assessment & Plan (1) Diabetes: Code(s): E11.9 - Type 2 diabetes mellitus without complications Category: Medical Plan: Will refill Insulin. Patient to follow up in 8 weeks or sooner if needed. Will get labs at next visit (2) Hypertension: Comment: BP today was 122/80 Code(s): I10 - Essential (primary) hypertension Category: Medical Plan: Will refill medications. Patient to follow up in 8 weeks or sooner if needed (3) Hypertrophic cardiomyopathy: Code(s): I42.2 - Other hypertrophic cardiomyopathy Category: Medical Plan: Patient to follow up with cardiology (4) Mitral regurgitation: Code(s): I34.0 - Nonrheumatic mitral (valve) insufficiency Category: Medical Plan: Patient to follow up with cardiology (5) History of breast cancer: Code(s): Z85.3 - Personal history of malignant neoplasm of breast Category: Medical Plan: Has been discharged from Oncology. Getting Mammogram yearly (6) History of DVT (deep vein thrombosis): Code(s): Z86.718 - Personal history of other venous thrombosis and embolism Category: Medical Plan: On Eliquis (7) History of arterial thrombosis: Code(s): Z86.718 - Personal history of other venous thrombosis and embolism Category: Medical Plan: On Eliquis (8) PFO (patent foramen ovale): Code(s): Q21.12 - Patent foramen ovale Category: Medical Plan: Patient to see Cardiology on 08/09 (9) Health care maintenance: Code(s): Z00.00 - Encounter for general adult medical examination without abnormal findings Category: Medical Plan: Will refer to [facility] for PAP. Patient declines colon cancer screening. Plan Plan Patient was informed and verbally consented to the use of an ambient scribe for clinic note documentation during this visit. 1. Medication Reconciliation A 90-day supply of all current medications, including Eliquis, insulin, aspirin, atorvastatin, metoprolol, verapamil, and sertraline, will be sent to the [facility] pharmacy in [place], [place]. 2. Diabetes Mellitus The patient will continue her current insulin regimen, including long-acting and short-acting insulin, and continue to monitor her blood glucose levels. She was advised not to take short-acting insulin if her blood sugar is below the sliding scale's starting point of 100, such as her recent reading of 92. A discussion was had regarding a continuous glucose monitor, which may be considered in about six months after she has stabilized. No endocrinology referral is needed at this time as long as her diabetes remains controlled. Lab work, including an A1c, will be deferred to the next visit in eight weeks. 3. Thrombosis And Patent Foramen Ovale The patient will continue Eliquis as prescribed to prevent further clotting. She will follow up with her cardiology appointment on August 09 to evaluate the patent foramen ovale (PFO) and determine the long-term plan for anticoagulation and potential PFO management. Discussion Notes I have reviewed the patient's extensive recent medical history, including multiple hospitalizations which led to the diagnosis of blood clots and a patent foramen ovale (PFO). We discussed her current medication list, and I will send in 90-day refills for all her medications to her preferred pharmacy. We discussed her new diagnosis of diabetes and her current insulin regimen. I advised her on managing low blood sugar readings and explained that we would defer lab work, including an A1c, until her next visit due to her recent frequent blood draws. I emphasized the importance of continuing her blood thinner, Eliquis, until she is cleared by her director employee communications. We also discussed health maintenance, including her decision to decline a colonoscopy and her agreement to proceed with a Pap smear, for which I will place a referral. I advised a follow-up appointment in eight weeks, by which time she will have seen the director employee communications, allowing us to review their findings and plan accordingly. Patient Instructions - Continue taking all your medications as prescribed. I will send 90-day refills to your [facility] pharmacy in [place]. - It is very important to keep taking your blood thinner, Eliquis, until your heart doctor (director employee communications) tells you otherwise. - Continue to check your blood sugar. - If your sugar is below 100, do not take your short-acting insulin dose. - Make sure to attend your cardiology appointment on August 09. - My office will put in a referral for you to have a Pap smear. - The [facility] office will contact you to schedule an appointment. - Please schedule a follow-up appointment with me in eight weeks. - We will do blood work at that visit. Orders: Referrals [facility] Referral Z12.4 - Encounter for screening for malignant neoplasm of cervix Medications: New aspirin 81 mg PO DAILY 90 tabs 1RF verapamil 40 mg PO BID 180 tabs 1RF atorvastatin (Lipitor) 10 mg PO DAILY 90 tabs 1RF sertraline 50 mg PO QAM 90 tabs 1RF insulin glargine (Lantus Solostar U-100 Insulin) 12 units (0.12 mL) subcut QPM 15 mL 6RF diabetes insulin lispro (Admelog SoloStar U-100 Insulin lispro) 5-10 units per ss 1 sliding scale dose subcut USEASDIRECTD 15 mL 6RF diabetes Changed From atenolol 25 mg PO DAILY 30 tabs 0RF To atenolol 25 mg PO BID 180 tabs 1RF Refilled apixaban (Eliquis) 5 mg PO BID 180 tabs 0RF Discontinued verapamil Discontinued Reason: Doctor's Order 80 mg PO BID 60 tabs 0RF
[2025-06-24 15:12] VITALS: BP 122/80; PULSE 68; TEMP 36.1; O2SAT 97; BMI 27.5
--- OUTSIDE RECORDS SUMMARY | 2025-06-24 22:32 | XMS_ITS | Clinical Summary ---
Author Organization [address] [place] [address] [place] [id number] Phone Care Team Providers Care Head Greenskeeper Name Role Phone Derrek Hendricks MD Primary Care Provider [phone] Allergies Active Allergy Reactions Criticality Noted Date [...] infection 12/02/2020 Essential hypertension 12/02/2020 Hypertrophic cardiomyopathy 12/02/2020 Nonrheumatic mitral valve regurgitation 05/21/20 21 Encounters Date Type Department Care Team Description 05/19/[address] [facility] Cardiology [facility] [address] [place] [address] [address] [place] [address] Jaya Choe NP 05/10/2025 Telephone [facility] [address] [place] [address] Jaya Choe NP 05/03/2025 Telephone [facility] [address] [place] [address] Jori Donato MD from Last 3 Months Social History Tobacco Use Types Packs/Day Years Used Date Smoking Tobacco: Never Smokeless Tobacco: Never Alcohol Use Standard Drinks/Week Comments Never 0 (1 standard drink = 0.6 oz pur e alcohol) Comments Unknown Sex and Gender Information Value Date Recorded Sex Assigned at Not on file Legal Sex Female 1:01 AM EST Gender Identity Not on file Sexual Orientation Not on file Last Filed Vital Signs Vital Sign Reading [...] Care Team (Late st Contact Info) Description 08/09/2025 1:[address] [facility] Cardiology [facility] [address] [place] [address] Brian Mason MD [address] [place] [address] [place] [address] Health Maintenance Due Date Last Done Comments Breast Cancer Screening 1955 Colorectal Cancer Screening: Colonoscopy 1955 Diabetes: Annual GFR (Glomer ular Filtration Rate) 1956 COVID-19 Vaccine (#1) 1961 Diabetes: Annual Foot Exam 1966 Diabetes: Annual Retina Eye Exam 1966 DTaP,Tdap,and Td Vaccines (1 - Tdap) 1975 Pneumococcal Vaccine: 50+ Ye ars (1 of 2 - PCV) 1975 Zoster Vaccines (1 of 2) 1975 RSV Immunization Adult Patie nts (1 - Risk 50-74 years 1-dose series) 2006 Cholesterol Screening (Lipid Panel) 06/23/2022 Falls Risk Assessment 06/23/2022 Hepatitis C Screening 06/23/2022 Osteoporosis Screening (Bone Density Screening) 06/23/2022 Social Influencers of Health Screening 06/23/2022 Hypertension/CHF/CAD Annual BMP Blood Test 06/24/2022 Depression Screening 07/15/2024 Influenza Vaccine (#1) 2025 Diabetes: Annual Urine Albumin-Creatinine Ratio (uACR) 05/19/2025 Diabetes: Blood Sugar Contro l Test (HGBA1C) 05/19/2025 HIB Vaccines Aged Out No longer eligi [...] patient's age to complete this topic Insurance [place] - [place] Care Teams Head Greenskeeper Relationship Specialty Start Date End Date Derrek Hendricks MD [address] [place] [address] [place] [address] PCP - General Internal Medicine 06/11/20
== END 2025-06-24 15:49 | disposition home or self-care (01) ==
LOC: HO.HMCHD 14:59
PROVIDERS: PCP Physician Assistant Medical; Visit Provider Physician Assistant Medical
DX: E11.9 Type 2 diabetes mellitus without complications (principal); I10 Essential (primary) hypertension; I34.0 Nonrheumatic mitral (valve) insufficiency; I42.2 Other hypertrophic cardiomyopathy; Z85.3 Personal history of malignant neoplasm of breast; Z86.718 Personal history of other venous thrombosis and embolism; Q21.12 Patent foramen ovale